=== PATIENT | male | born 1970 | race Native Hawaiian/Other Pacific Islander ===

== ENCOUNTER 2017-12-31 15:49 | Emergency (ER) | payer BC ==
[2017-12-31 16:06] VITALS: RESP 18; O2SAT 99
--- NOTE | 2017-12-31 16:10 | ED PDOC ---
Arrival/HPI - General Chief Complaint: Dizziness/Lightheaded Time Seen by Provider: 12/31/17 16:10 Past Medical History - Psychiatric Hx Substance Use: No Family/Social History Smoking Status: Never Smoked Hx Alcohol Use: Yes Frequency of alcohol use: Few days per week Hx Substance Use: No Allergies/Home Meds Allergies/Adverse Reactions: Allergies No Known Allergies Allergy (Verified 12/31/17 16:06) Home Medications: Home Meds Medication Instructions Recorded Confirmed No Known Home Med 12/31/17 12/31/17 Physical Exam Vital Signs Temp Pulse Resp BP Pulse Ox 12/31/17 16:04 98.1 F 73 18 133/90 99 Disposition/Present on Arrival - Present on Arrival History of DVT/PE: No History of Uncontrolled Diabetes: No Urinary Catheter: No History of Decub. Ulcer: No History Surgical Site Infection Following: None - Disposition
[2017-12-31] MEDS ORDERED: Sodium Chloride 0.9% 1,000 ML IV STA (16:16)
--- NOTE | 2017-12-31 16:24 | ED PDOC ---
Arrival/HPI - General Chief Complaint: Dizziness/Lightheaded Time Seen by Provider: 12/31/17 16:10 Historian: Patient - History of Present Illness Narrative History of Present Illness (Text): 12/31/17 16:20 47 y/o male, no significant pmh, nkda, c/o feeling dizziness and fatigue x 2 days. Pt. stated that he has been feeling fatigue and tired x 2 days, associated positional aggravated dizziness, went to the urgent care and told to come to the ER for evaluation. Pt. stated that he feels well, no chest pain or shortness of breath, dizziness aggravated by walking, no numbness or tingling, no palpitation, no rash, no night sweat, no dizziness, no other medical or psychological complaints. Past Medical History - Provider Review Nursing Documentation Reviewed: Yes - Psychiatric Hx Substance Use: No Family/Social History - Physician Review Nursing Documentation Reviewed: Yes Family/Social History: Unknown Family HX Smoking Status: Never Smoked Hx Alcohol Use: Yes Frequency of alcohol use: Few days per week Hx Substance Use: No Allergies/Home Meds Allergies/Adverse Reactions: Allergies No Known Allergies Allergy (Verified 12/31/17 16:06) Review of Systems - Review of Systems Constitutional: Fatigue. absent: Fevers Eyes: absent: Vision Changes ENT: absent: Hearing Changes Respiratory: absent: SOB, Cough Cardiovascular: absent: Chest Pain Gastrointestinal: absent: Abdominal Pain, Nausea, Vomiting Genitourinary Male: absent: Dysuria, Frequency Musculoskeletal: absent: Arthralgias, Back Pain Skin: absent: Rash, Pruritis Neurological: Dizziness. absent: Headache Physical Exam Vital Signs Reviewed: Yes Vital Signs Temp Pulse Resp BP Pulse Ox 12/31/17 16:04 98.1 F 73 18 133/90 99 Temperature: Afebrile Blood Pressure: Normal Pulse: Regular Respiratory Rate: Normal Appearance: Positive for: Well-Appearing, Non-Toxic, Comfortable Pain Distress: None Mental Status: Positive for: Alert and Oriented X 3 - Systems Exam Head: Present: Atraumatic, Normocephalic Pupils: Present: PERRL Extroacular Muscles: Present: EOMI Conjunctiva: Present: Normal Mouth: Present: Moist Mucous Membranes Neck: Present: Normal Range of Motion Respiratory/Chest: Present: Clear to Auscultation, Good Air Exchange. No: Respiratory Distress, Accessory Muscle Use Cardiovascular: Present: Regular Rate and Rhythm, Normal S1, S2. No: Murmurs Abdomen: No: Tenderness, Distention, Peritoneal Signs Back: Present: Normal Inspection Upper Extremity: Present: Normal Inspection. No: Cyanosis, Edema Lower Extremity: Present: Normal Inspection. No: Edema Neurological: Present: GCS=15, CN II-XII Intact, Speech Normal, Motor Func Grossly Intact, Gait Normal, Memory Normal, Other (normal finger to nose test, normal heel to weaver, NIHSS is zero, no focal neurological deficits. ) Skin: Present: Warm, Dry, Normal Color. No: Rashes Psychiatric: Present: Alert, Oriented x 3, Normal Insight, Normal Concentration Medical Decision Making ED Course and Treatment: 12/31/17 16:25 -labs -CT head -CXR -IVF/meclizine -Observe and reassess 12/31/17 17:30 -Orthostatic obtained, negative -CT head No acute intracranial abnormality. -CXR show No active pulmonary disease. -Labs show no acute findings -INfluenza is negative. -Mg within normal limit -BNP within normal limit -Trop is negative after 24 hours -Pt. has no urinary symptoms. -HEART score is low -PERC is negative -Wells criteria is zero -Pt. is walking with normal gait and posture, no focal neurological deficits. 12/31/17 18:05 -All labs and radiology studies show no acute findings, discussed with the patient about this results, he is feeling completely better, walking around and not feeling dizziness or fatigue, request to be discharged home. -Discharge home with meclizine, stay hydrated, bed rest, follow up with your own pmd and neurologist within 2 days, return to the ER for any new or worsening signs or symptoms. - RAD Interpretation Radiology Orders: 12/31/17 16:16 HEAD W/O CONTRAST [CT] Stat CHEST PORTABLE [RAD] Stat CT head: PROCEDURE: CT HEAD WITHOUT CONTRAST. HISTORY: fatigue and dizziness COMPARISON: None available. TECHNIQUE: Axial computed tomography images were obtained through the head/brain without intravenous contrast. Radiation dose: Total exam DLP = 865.28 mGy-cm. This CT exam was performed using one or more of the following dose reduction techniques: Automated exposure control, adjustment of the mA and/or kV according to patient size, and/or use of iterative reconstruction technique. FINDINGS: HEMORRHAGE: No intracranial hemorrhage. BRAIN: Oreilly-white matter differentiation is preserved. There is no mass, mass effect or abnormal extra-axial fluid collection. There is no territorial infarction. The midline sagittal structures are normal. VENTRICLES: The ventricles are normal in size, shape and configuration. CALVARIUM: There is no calvarial fracture or extracranial soft tissue swelling. PARANASAL SINUSES: Predominantly clear. MASTOID AIR CELLS: Predominantly clear. OTHER FINDINGS: None. IMPRESSION: No acute intracranial abnormality. CXR Date of service: 12/31/2017 HISTORY: medical clearance COMPARISON: No prior. FINDINGS: LUNGS: The lungs are well inflated and clear. PLEURA: No pleural effusions or pneumothorax. CARDIOVASCULAR: The heart is normal in size. No aortic atherosclerotic calcification present. OSSEOUS STRUCTURES: Within normal limits for the patient's age. VISUALIZED UPPER ABDOMEN: Normal. OTHER FINDINGS: None. IMPRESSION: No active pulmonary disease. 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 Disposition/Present on Arrival - Present on Arrival Any Indicators Present on Arrival: No History of DVT/PE: No History of Uncontrolled Diabetes: No Urinary Catheter: No History of Decub. Ulcer: No History Surgical Site Infection Following: None - Disposition Have Diagnosis and Disposition been Completed?: Yes Diagnosis: Vertigo Disposition: HOME/ ROUTINE Disposition Time: 18:07 Patient Plan: Discharge Patient Problems: Current Active Problems Problem Status Onset Vertigo Acute Condition: IMPROVED Additional Instructions: -Discharge home with meclizine, stay hydrated, bed rest, follow up with your own pmd and neurologist within 2 days, return to the ER for any new or worsening signs or symptoms. Prescriptions: Meclizine [Meclizine*] 25 mg PO Q6 #30 tab Referrals: Storm Fang MD [Staff Provider] - Follow up with primary [facility] [place] [Outside] - Follow up with primary Forms: [employer] (Greenlandic), WORK NOTE
[2017-12-31 16:52] LABS: BASO # 0.01 K/mm3 (0.0-2.0); BASO % 0.1 % (0.0-3.0); EOS % 0.1 % (1.5-5.0); GRAN # 8.51 (1.4-6.5); GRAN % 84.9 % (50.0-68.0); HEMOGLOBIN 15.4 g/dL (14.0-18.0); LYMPH # 1.1 (1.2-3.4); LYMPH % 10.6 % (22.0-35.0); MEAN CELL VOLUME 85.7 fl (80.0-105.0); MEAN CORPUSCULAR HEMOGLOBIN 30.1 pg (25.0-35.0); MEAN CORPUSCULAR HGB CONC 35.1 g/dl (31.0-37.0); MEAN PLATELET VOLUME 9.7 fl (7.0-11.0); MONO # 0.4 (0.1-0.6); MONO % 4.3 % (1.0-6.0); RBC 5.12 10^6/uL (3.5-6.1); RED CELL DISTRIBUTION WIDTH 12.6 % (11.5-14.5)
[2017-12-31 17:03] LABS: ALB/GLOB RATIO 1.2 (1.1-1.8); ALBUMIN 4.2 g/dL (3.0-4.8); ALT/SGPT 34 U/L (7-56); AST/SGOT 23 U/L (17-59); BLOOD UREA NITROGEN 12 mg/dL (7-21); CALCIUM 8.7 mg/dL (8.4-10.5); GFR NON-AFRICAN AMERICAN > 60
[2017-12-31 17:15] LABS: B-TYPE NATRIURETIC PEPTIDE 30.5 pg/mL (0-450); TROPONIN I < 0.01 ng/mL
[2017-12-31 17:21] LABS: CK-MB 1.8 ng/mL (0.0-3.6)
--- NOTE | 2017-12-31 17:30 | RAD ---
Date of service: 12/31/2017 HISTORY: medical clearance COMPARISON: No prior. FINDINGS: LUNGS: The lungs are well inflated and clear. PLEURA: No pleural effusions or pneumothorax. CARDIOVASCULAR: The heart is normal in size. No aortic atherosclerotic calcification present. OSSEOUS STRUCTURES: Within normal limits for the patient's age. VISUALIZED UPPER ABDOMEN: Normal. OTHER FINDINGS: None. IMPRESSION: No active pulmonary disease.
--- NOTE | 2017-12-31 17:30 | CT ---
Date of service: 12/31/2017 PROCEDURE: CT HEAD WITHOUT CONTRAST. HISTORY: fatigue and dizziness COMPARISON: None available. TECHNIQUE: Axial computed tomography images were obtained through the head/brain without intravenous contrast. Radiation dose: Total exam DLP = 865.28 mGy-cm. This CT exam was performed using one or more of the following dose reduction techniques: Automated exposure control, adjustment of the mA and/or kV according to patient size, and/or use of iterative reconstruction technique. FINDINGS: HEMORRHAGE: No intracranial hemorrhage. BRAIN: [place]illy-white matter differentiation is preserved. There is no mass, mass effect or abnormal extra-axial fluid collection. There is no territorial infarction. The midline sagittal structures are normal. VENTRICLES: The ventricles are normal in size, shape and configuration. CALVARIUM: There is no calvarial fracture or extracranial soft tissue swelling. PARANASAL SINUSES: Predominantly clear. MASTOID AIR CELLS: Predominantly clear. OTHER FINDINGS: None. IMPRESSION: No acute intracranial abnormality. If there is a persistent focal neurologic deficit and an ongoing clinical concern for acute infarction, an MRI of the brain without intravenous contrast would be a more sensitive modality for evaluation of hyperacute/acute ischemic infarction.
[2017-12-31 18:42] VITALS: BP 124/73; PULSE 82; TEMP 98.3
--- NOTE | 2018-01-01 10:15 | CARD ---
APPROVED REPORT Date of service: 12/31/2017 EKG Measurement Heart [id number] <Conclusion> Normal sinus rhythm Normal ECG
== END 2017-12-31 18:42 | disposition home or self-care (01) ==
LOC: ED 15:49
DX: R42 Dizziness and giddiness (principal)
CPT/HCPCS: 70450; 71045; 80053; 82550; 82553; 83615; 83735; 83880; 84484; 85025; 87804; 93005; 99285; J7030

== ENCOUNTER 2018-06-17 07:27 | Emergency (ER) | payer BC ==
[2018-06-17 07:42] VITALS: RESP 18
--- NOTE | 2018-06-17 07:49 | ED PDOC ---
Arrival/HPI <Yogesh Romeo - Last Filed: 06/17/18 09:33> - General Historian: Patient - History of Present Illness Narrative History of Present Illness (Text): 06/17/18 07:49 Patient is a 47yo M with no PMH presenting with L ear pain since Monday. He reports having a small lesion on the external ear canal that he suspects was a bug bite on Monday, which was bleeding at the time. The area was itchy so he began to scratch at it and used a q tip to apply vaseline to the area. The following the morning, the patient reported pain, swelling, and redness to the ear which has progressively worsened since then. He reports taking aleve at home with no relief. Patient reports fever. He denies purulent drainage from the area. He denies hearing changes, vision changes, or headache. Patient denies chills, nausea, vomiting, abdominal pain, chest pain, shortness of breath, or diarrhea. Time/Duration: < week Symptom Onset: Gradual Symptom Course: Worsening Quality: Throbbing Severity Level: 3 <Lewis Stapleton - Last Filed: 06/17/18 10:18> - General Chief Complaint: ENT Problem Past Medical History - Psychiatric Hx Substance Use: No <Lewis Stapleton - Last Filed: 06/17/18 10:18> Family/Social History Family/Social History: No Known Family HX Smoking Status: Never Smoked Hx Alcohol Use: Yes Frequency of alcohol use: Few days per week Hx Substance Use: No <Lewis Stapleton - Last Filed: 06/17/18 10:18> Allergies/Home Meds <Yogesh Romeo - Last Filed: 06/17/18 09:33> <Lewis Stapleton - Last Filed: 06/17/18 10:18> Allergies/Adverse Reactions: Allergies ibuprofen Allergy (Verified 06/17/18 08:07) SWELLING Review of Systems - Review of Systems Constitutional: Fevers Eyes: Normal. absent: Vision Changes ENT: Other (ear pain, swelling). absent: Hearing Changes, Tinnitus Respiratory: Normal. absent: SOB, Cough Cardiovascular: Normal. absent: Chest Pain Gastrointestinal: Normal. absent: Abdominal Pain, Diarrhea, Nausea, Vomiting Genitourinary Male: Normal. absent: Dysuria Musculoskeletal: Normal Skin: Skin Lesions, Cellulitis Neurological: Normal. absent: Headache, Dizziness, Focal Weakness Endocrine: Normal Hemo/Lymphatic: Normal Psychiatric: Normal <Lewis Stapleton - Last Filed: 06/17/18 10:18> Physical Exam Vital Signs Temp Pulse Resp BP Pulse Ox 06/17/18 09:31 100.4 F H 06/17/18 07:40 101.1 F H 118 H 18 130/83 99 <Yogesh Romeo - Last Filed: 06/17/18 09:33> Vital Signs Reviewed: Yes Vital Signs Temp Pulse Resp BP Pulse Ox 06/17/18 07:40 101.1 F H 118 H 18 130/83 99 Temperature: Febrile Blood Pressure: Normal Pulse: Tachycardic Respiratory Rate: Normal Appearance: Positive for: Well-Appearing, Non-Toxic, Comfortable Pain Distress: None Mental Status: Positive for: Alert and Oriented X 3 - Systems Exam Head: Present: Atraumatic, Normocephalic Pupils: Present: PERRL Extroacular Muscles: Present: EOMI Conjunctiva: Present: Normal Ears: Present: NORMAL TM. No: Fluid (erythema and edema of external ear with a small 0.5cm honey-crusted lesion on the zenaida. Minimal erythema in the external auditory canal.) Mouth: Present: Moist Mucous Membranes, Normal Tounge, Other (multiple dental carries) Pharnyx: Present: Normal. No: ERYTHEMA, EXUDATE, TONSILS ENLARGED, Uvular Deviation Nose (Internal): Present: Normal Inspection Neck: Present: Normal Range of Motion. No: Lymphadenopathy Respiratory/Chest: Present: Clear to Auscultation, Good Air Exchange. No: Respiratory Distress, Accessory Muscle Use, Wheezes, Rales, Rhonchi Cardiovascular: Present: Normal S1, S2, Tachycardic Abdomen: Present: Normal Bowel Sounds. No: Tenderness, Distention Upper Extremity: Present: Normal Inspection. No: Cyanosis, Edema Lower Extremity: Present: Normal Inspection. No: Edema Neurological: Present: GCS=15, CN II-XII Intact, Speech Normal Skin: Present: Warm, Other (erythema and edema of external ear with a small 0.5cm honey-crusted lesion on the zenaida. Minimal erythema in the external auditory canal. erythema and edema to lateral temporal, malar regions and mandible) Psychiatric: Present: Alert, Oriented x 3, Normal Insight, Normal Concentration <GeorgejuliaManishaarmando - Last Filed: 06/17/18 10:18> Medical Decision Making - Lab Interpretations Lab Results: pO2 36 mm/Hg (30-55) 06/17/18 08:30 VBG pH 7.39 (7.32-7.43) 06/17/18 08:30 VBG pCO2 43.0 (40-60) 06/17/18 08:30 VBG HCO3 26.0 mmol/l (21-28) 06/17/18 08:30 VBG Total CO2 27.3 mmol.L (22-28) 06/17/18 08:30 VBG O2 Sat (Calc) 71.0 % (40-65) H 06/17/18 08:30 VBG Base Excess 0.8 mmol/L (0.0-2.0) 06/17/18 08:30 VBG Potassium 3.4 mmol/L (3.6-5.2) L 06/17/18 08:30 Sodium 138.0 mmol/L (132-148) 06/17/18 08:30 Chloride 101.0 mmol/L (98-107) 06/17/18 08:30 Glucose 172 mg/dl (75-110) H 06/17/18 08:30 Lactate 1.7 mmol/L (0.7-2.1) 06/17/18 08:30 FiO2 21.0 % 06/17/18 08:30 Total Bilirubin 0.5 mg/dL (0.2-1.3) 06/17/18 08:15 AST 36 U/L (17-59) 06/17/18 08:15 ALT 22 U/L (7-56) 06/17/18 08:15 Alkaline Phosphatase 80 U/L (38-126) 06/17/18 08:15 Total Protein 7.1 g/dL (5.8-8.3) 06/17/18 08:15 Albumin 3.8 g/dL (3.0-4.8) 06/17/18 08:15 Globulin 3.3 gm/dL 06/17/18 08:15 Albumin/Globulin Ratio 1.2 (1.1-1.8) 06/17/18 08:15 06/17/18 08:15 06/17/18 08:15 Lab Results 06/17/18 08:30: pO2 36, VBG pH 7.39, VBG pCO2 43.0, VBG HCO3 26.0, VBG Total CO2 27.3, VBG O2 Sat (Calc) 71.0 H, VBG Base Excess 0.8, VBG Potassium 3.4 L, Gluc ose 172 H, Lactate 1.7, FiO2 21.0, Sodium 138.0, Chloride 101.0, Venous Blood Potassium 3.4 L 06/17/18 08:15: Sodium 134, Potassium 3.4 L, Chloride 101, Carbon Dioxide 27, Anion Gap 10, BUN 14, Creatinine 1.0, Est GFR ( Amer) > 60, Est GFR (Non- Af Amer) > 60, Random Glucose 155 H, Calcium 8.3 L, Total Bilirubin 0.5, AST 36, ALT 22, Alkaline Phosphatase 80, Total Protein 7.1, Albumin 3.8, Globulin 3.3, Albumin/Globulin Ratio 1.2 06/17/18 08:15: WBC 11.6 H, RBC 4.89, Hgb 14.6, Hct 42.8, MCV 87.5, MCH 29.9, MCHC 34.1, RDW 12.7, Plt Count 141, MPV 9.7, Neut % (Auto) 83.7 H, Lymph % (Auto) 7.6 L, [place] % (Auto) 8.6 H, Eos % (Auto) 0.0 L, Baso % (Auto) 0.1, Lymph # (Auto) 0.9 L, [place] # (Auto) 1.0 H, Eos # (Auto) 0.0, Baso # (Auto) 0.01, Absolute Neuts (auto) 9.68 H I have reviewed the lab results: Yes - RAD Interpretation Radiology Orders: 06/17/18 08:20 MASTOIDS W/O CONTRAST [CT] Stat - Medication Orders Current Medication Orders: Sodium Chloride (Sodium Chloride 0.9%) 1,000 mls @ 100 mls/hr IV .Q10H SHAYLEE Last Admin: 06/17/18 08:20 Dose: 100 mls/hr eMAR Start Stop Document 06/17/18 08:20 GMI (Rec: 06/17/18 08:20 GMI [id number]) Intravenous Solution Start Date 06/17/18 Start Time 08:20 Discontinued Medications Acetaminophen (Tylenol 325mg Tab) 650 mg PO STAT STA Stop: 06/17/18 08:08 Last Admin: 06/17/18 08:18 Dose: 650 mg MAR Pain/Vitals Document 06/17/18 08:18 GMI (Rec: 06/17/18 08:19 GMI [facility] [id number] Pain Reassessment Is This A Pain ReAssessment? Yes Sleep Is patient sleeping during reassessment? No Presence of Pain Presence of Pain Yes Location Left, Right or Bilateral Left Pain Location Body Site Ear Pain Behavior Facial Grimacing Clindamycin Phosphate (Cleocin 600mg/50ml D5w) 600 mg in 50 mls @ 50 mls/hr IVPB STAT STA; Protocol Stop: 06/17/18 09:17 Last Admin: 06/17/18 09:11 Dose: 50 mls/hr eMAR Start Stop Document 06/17/18 09:11 GMI (Rec: 06/17/18 09:11 GMI [facility] [id number]) Intravenous Solution Start Date 06/17/18 Start Time 09:11 End Date 06/17/18 End time 10:15 Total Infusion Time 64 <Yogesh Romeo - Last Filed: 06/17/18 09:33> ED Course and Treatment: 06/17/18 10:01 CT reviewed, facial cellulitis. No evidence of bony involvement. Patient reports improvement in pain and says he feels better. He wishes to go home at this time. Patient was advised to be admitted for IV antibiotics to prevent further progression of the cellulitis. Patient prefers to go home against medical advice, and understands that he is to follow up with his primary doctor tomorrow. <Lewis Stapleton - Last Filed: 06/17/18 10:18> Disposition/Present on Arrival <Yogesh Romeo - Last Filed: 06/17/18 09:33> - Present on Arrival Any Indicators Present on Arrival: No History of DVT/PE: No History of Uncontrolled Diabetes: No Urinary Catheter: No History of Decub. Ulcer: No History Surgical Site Infection Following: None - Disposition Have Diagnosis and Disposition been Completed?: Yes Disposition Time: 10:12 <Lewis Stapleton - Last Filed: 06/17/18 10:18> - Disposition Diagnosis: Cellulitis, face Disposition: AGAINST MEDICAL ADVICE Patient Problems: Current Active Problems Problem Status Onset Cellulitis, face Acute Condition: IMPROVED Discharge Instructions (ExitCare): Cellulitis (Skin Infection), Adult (DC) Additional Instructions: Please follow up with your primary care physician tomorrow. Please take your prescribed antibiotics 3 times a day for 10 days. If symptoms worsen, return to the emergency department. Prescriptions: Clindamycin [Cleocin] 300 mg PO TID #30 cap Referrals: Shayan Tolentino DO [Primary Care Provider] - Follow up with primary Forms: [employer] (Algerian)
[2018-06-17] MEDS ORDERED: Sodium Chloride 0.9% 1,000 ML IV SCH (08:15)
[2018-06-17] MEDS ORDERED: Clindamycin 600mg/50ml D5W 600 MG/50 ML VIAL IVPB STA (08:18)
[2018-06-17 08:58] LABS: VENOUS BLOOD GAS BASE EXCESS 0.8 mmol/L (0.0-2.0); VENOUS BLOOD GAS PO2 36 mm/Hg (30-55); VENOUS BLOOD PH 7.39 (7.32-7.43)
[2018-06-17 09:09] LABS: ALB/GLOB RATIO 1.2 (1.1-1.8); ALBUMIN 3.8 g/dL (3.0-4.8); ALT/SGPT 22 U/L (7-56); AST/SGOT 36 U/L (17-59); BLOOD UREA NITROGEN 14 mg/dL (7-21); CALCIUM 8.3 mg/dL (8.4-10.5); GFR NON-AFRICAN AMERICAN > 60
[2018-06-17 09:10] LABS: BASO # 0.01 K/mm3 (0.0-2.0); BASO % 0.1 % (0.0-3.0); HEMOGLOBIN 14.6 g/dL (14.0-18.0); LYMPH # 0.9 (1.2-3.4); LYMPH % 7.6 % (22.0-35.0); MEAN CELL VOLUME 87.5 fl (80.0-105.0); MEAN CORPUSCULAR HEMOGLOBIN 29.9 pg (25.0-35.0); MEAN CORPUSCULAR HGB CONC 34.1 g/dl (31.0-37.0); MEAN PLATELET VOLUME 9.7 fl (7.0-11.0); MONO % 8.6 % (1.0-6.0); RBC 4.89 10^6/uL (3.5-6.1); RED CELL DISTRIBUTION WIDTH 12.7 % (11.5-14.5); WHITE BLOOD COUNT 11.6 10^3/uL (4.5-11.0)
--- NOTE | 2018-06-17 09:48 | CT ---
Date of service: 06/17/2018 PROCEDURE: CT OF THE TEMPORAL BONES WITHOUT CONTRAST HISTORY: Cellulitis w/tenderness to L TMJ COMPARISON: None available. TECHNIQUE: High resolution axial images of the temporal bones were obtained. Coronal and sagittal reformats were generated. Radiation dose: Total exam DLP = 564.2 mGy-cm. This CT exam was performed using one or more of the following dose reduction techniques: Automated exposure control, adjustment of the mA and/or kV according to patient size, and/or use of iterative reconstruction technique. FINDINGS: RIGHT TEMPORAL BONE: RIGHT MIDDLE EAR: Normal. RIGHT INNER EAR: Cochlea: Normal. Semicircular canals: Normal. RIGHT MASTOID AIR CELLS: Normal. RIGHT INTERNAL AUDITORY CANAL: Normal. RIGHT EXTERNAL AUDITORY CANAL: Normal. RIGHT VESTIBULAR AND COCHLEAR AQUEDUCT: Normal. OTHER FINDINGS: None. LEFT TEMPORAL BONE: LEFT MIDDLE EAR: Normal. LEFT INNER EAR: Cochlea: Normal. Semicircular canals: Normal. LEFT MASTOID AIR CELLS: Normal. LEFT INTERNAL AUDITORY CANAL: Normal. LEFT EXTERNAL AUDITORY CANAL: Normal. LEFT VESTIBULAR AND COCHLEAR AQUEDUCTS: Normal. OTHER FINDINGS: There are infiltration changes subcutaneous tissues anteriorly over the left zygomatic arch and a infratemporal fossa region. Infiltration changes also extend superiorly over the left temporoparietal scalp. Findings may represent a parotiditis with surrounding cellulitis. Infiltration and edema also appears to involve the left pinna. The left parotid gland is incompletely visualized that though portion that is seen exhibits slight increased attenuation with infiltration; rule out underlying bronchitis IMPRESSION: There are infiltration over the left lateral facial soft tissues and left pinna extending superiorly over the left temporoparietal scalp. Findings consistent with a facial cellulitis. The left parotid gland is incompletely visualized however that portion that is visible exhibits slight increased attenuation and infiltration changes. Possibility concomitant left parotiditis may be present as well... No definitive drainable fluid or abscess collections seen. Otherwise unremarkable non contrast enhanced CT of the temporal bones.
[2018-06-17] MEDS ORDERED: cefTRIAXone 1 gm 1 GM/100 ML BAG IVPB SCH (10:00)
[2018-06-17 10:30] VITALS: BP 126/53; PULSE 100; TEMP 99; O2SAT 98
== END 2018-06-17 10:29 | disposition left against medical advice (07) ==
LOC: ED 07:27
DX: L03.211 Cellulitis of face (principal)
CPT/HCPCS: 70480; 80053; 82803; 85025; 87040; 96365; 99284; J7030